=== PATIENT | female | born 1985 | race African-American/Black ===

== ENCOUNTER 2019-02-08 07:45 | Day surgery (SDC) | payer BC, OTHER ==
[2019-02-07 14:10] VITALS: BMI 29.4
[2019-02-08] VITALS (11 sets, daily range): BP systolic 94–121; BP diastolic 56–75; PULSE 66–97; RESP 13–24; Ht 177.8 cm; Wt 92.8 kg
[~2019-02-08] VITALS: Ht 177.8 cm; Wt 92.8 kg
[~2019-02-08 07:45] MED LIST: CEFAZOLIN 2 GM/50 ML (PMX) 50 ML IVPB SCH
[2019-02-08] MEDS ORDERED: LORA10TA3 PO (08:44)
[2019-02-08] MEDS ORDERED: FLUT9.9S NASAL (08:44)
[2019-02-08] MEDS ORDERED: SOD CHLORIDE 0.9% 1,000 ML IV SCH (09:00)
[2019-02-08] MEDS ORDERED: FENTAnyl 50 MCG/ML VIAL ONE ×2 (10:42→12:31)
[2019-02-08] MEDS ORDERED: PROPOFOL 20 ML ONE (10:42)
[2019-02-08] MEDS ORDERED: NEOSTIGMINE 3 MG/3 ML SYRINGE ONE (10:42)
[2019-02-08] MEDS ORDERED: CEFAZOLIN 1 GM INJ ONE (10:42)
[2019-02-08] MEDS ORDERED: GLYCOPYRROLATE 0.4 MG INJ ONE (10:42)
[2019-02-08] MEDS ORDERED: ROCURONIUM 50 MG INJ ONE (10:42)
[2019-02-08] MEDS ORDERED: ONDANSETRON 4 MG INJ ONE (10:42)
[2019-02-08] MEDS ORDERED: MIDAZOLAM 1 MG/ML 2 ML INJ ONE (10:42)
[2019-02-08] MEDS ORDERED: DEXAMETHASONE 4 MG/ML 5 ML INJ ONE (10:42)
[2019-02-08] MEDS ORDERED: LABETALOL HCL 20MG INJ ONE (11:02)
--- NOTE | 2019-02-08 11:20 | PREAC ---
Date/Time of Note Date/Time of Note DATE: 02/08/19 TIME: 11:18 Anesthesia Eval and Record Evaluation Time Pre-Procedure Interview DATE: 02/08/19 TIME: 11:18 Age 33 Sex female NPO: 8 hrs Preoperative diagnosis cholelithiasis Planned procedure LAPAROSCOPIC CHOLECYSTECTOMY POSS OPEN Past Medical History Past Medical History: Includes Pulm: Smoking Hx Surgery & Anesthesia Issues No known issue Meds Anticoagulation: No Beta Panchito within 24 hr: No Reason Beta Panchito not given: Pt. not on B-Panchito Reported Medications Fluticasone Propionate (Flonase Allergy Relief) 9.9 Ml [place].susp, 1 SPRAY NASAL DAILY, #1 BOTTLE TO EACH NOSTRIL 02/08/19 Loratadine* (Loratadine*) 10 Mg Tablet, 10 MG PO DAILY, #30 TAB 02/08/19 Current Medications Cefazolin Sodium/ Dextrose 50 ml @ 100 mls/hr ONCE IVPB ; Start 02/08/19 at 06:00; Stop 02/08/19 at 16:00 Sodium Chloride 1,000 ml @ 75 mls/hr [id number] IV Last administered on 02/08/19at 08:59; Admin Dose 75 MLS/HR; Start 02/08/19 at 09:00 Meds reviewed: Yes Allergies Coded Allergies: doxycycline (Verified Allergy, Severe, rash, 02/07/19) Allergies Reviewed: Yes Labs/Studies Labs Reviewed: Reviewed by anesthesiologist test: N/A (hysterectomy) Pre-procedure Exam Last vitals Vital Signs Date Temp Pulse Resp B/P (MAP) Pulse Ox O2 O2 Flow FiO2 Time Delivery Rate 02/08/19 97.4 97 16 121/75 97 Room Air 08:51 (90) Airway: Adequate mouth opening Mallampati: Mallampati II Teeth: Normal Lung: Normal Heart: Normal ASA Physical Status ASA physical status: 2 Emergency: None Planned Anesthetic General/MAC: ETT Pre-operative Attestations Prior to commencing anesthesia and surgery, the patient was re-evaluated, there was verification of: *The patient's identity *The results of appropriate recent lab work and preoperative vital signs *The above evaluation not changing prior to induction *Anesthetic plan, risk benefits, alternative and complications discussed with patient/family; questions answered; patient/family understands, accepts and wishes to proceed. ELIZABETH TALAVERA Feb 08, 2019 11:20
[2019-02-08] MEDS ORDERED: BUPIVACAINE 0.25% (MPF) 30 ML INJ ONE (11:38)
[2019-02-08] MEDS ORDERED: ALBUTEROL 0.083% (NEB) 2.5 MG/3 ML AMP HHN PRN (12:00)
[2019-02-08] MEDS ORDERED: LABETALOL HCL 20MG INJ IV PRN (12:00)
[2019-02-08] MEDS ORDERED: OXYCODONE/ACETAMINOPHEN (5/325) TAB PO PRN ×2 (12:00)
[2019-02-08] MEDS ORDERED: FENTAnyl 50 MCG/ML VIAL IV PRN ×3 (12:00)
[2019-02-08] MEDS ORDERED: HYDROmorphONE 1 MG/5 ML IV SYRINGE IV PRN ×3 (12:00)
[2019-02-08] MEDS ORDERED: ONDANSETRON 4 MG INJ IV PRN (12:00)
[2019-02-08] MEDS ORDERED: IPRATROPIUM (NEB) 0.5 MG/2.5 ML AMP HHN PRN (12:00)
[2019-02-08] MEDS ORDERED: EPHEDrine 25 MG/5 ML SYG IV PRN (12:00)
[2019-02-08] MEDS ORDERED: MIDAZOLAM 1 MG/ML 2 ML INJ IV PRN (12:00)
[2019-02-08] MEDS ORDERED: hydrALAzine 20 MG INJ IV PRN (12:00)
[2019-02-08] MEDS ORDERED: DIPHENHYDRAMINE 50 MG INJ IV PRN (12:00)
[2019-02-08] MEDS ORDERED: TRIMETHOBENZAMIDE 100 MG/ML VIAL IM PRN (12:00)
[2019-02-08] MEDS ORDERED: MEPERIDINE 25 MG INJ IV PRN (12:00)
[2019-02-08] MEDS ORDERED: ROPIVACAINE 0.5 % 30 ML VIAL ONE (12:03)
--- NOTE | 2019-02-08 12:44 | OPR ---
Date/Time of Note Date/Time of Note DATE: 02/08/19 TIME: 12:42 Operative Report Procedure Date: Feb 08, 2019 Preoperative Diagnosis symptomatic gallstones Postoperative Diagnosis same Operation/Procedure Performed laparoscopic cholecystectomy Surgeon see signature line [employer] Alvino Tavares Anesthesia Type: general Estimated Blood Loss: 0 - 10 ml's Transfusion none Specimen gallbladder Grafts/Implants none Complications none Pt Condition Post Procedure: stable Indications This is a 33-year-old female with some tender gallstones. She required surgical excision of her gallbladder. Risks alternatives benefits and personal were discussed the patient. Patient expressed understanding consents to the operation. Procedure Description Patient is taken to the OR and prepped and draped in usual sterile fashion. Surgical timeout was performed. IV antibiotics given. Infraumbilical transverse incision was made at the 15 blade. Dissection with cardioscan down to the fascia. The fascia was grasped with Karmen's and divided with curved De Jesus scissors. 0 Vicryl use this was placed into the fascia. Baltazar trocar was introduced. Pneumoperitoneum was established. Midepigastric 12 mm optical trochars placed under direct visualization. Right upper quadrant upper flank 5 mm optical trochars were placed under direct visualization. Upon initial inspection there is some adhesions to gallbladder which were taken down bluntly. The gallbladder is grasped with the fundus and retracted and lateral cephalad direction. [place] graspers were used to dissect out the cystic duct and cystic artery. The critical view was established. The cystic duct is divided with the clips proximal clip distal. The division was performed laparoscopic scissors. Cystic artery was divided to close proximal to distal and the divisions performed laparoscopic scissors. The gallbladder was taken of the gallbladder bed. Good hemostasis status. The gallbladder is retrieved Endo Catch bag. All ports removed under direct visualization. 0 Vicryl sutures tied down. Skin is closed and skin surinder. A tap block was provided by the anesthesiologist at the beginning the case. Dry dressings were applied. Julito HUTCHINS Feb 08, 2019 12:44
[2019-02-08] MEDS ORDERED: HYDROCODONE/APAP (5/325) TAB PO ONE (13:00)
--- NOTE | 2019-02-08 13:03 | PAC ---
Date/Time of Note Date/Time of Note DATE: 02/08/19 TIME: 13:02 Post-Anesthesia Notes Post-Anesthesia Note Last documented vital signs Vital Signs Date Temp Pulse Resp B/P (MAP) Pulse Ox O2 O2 Flow FiO2 Time Delivery Rate 02/08/19 98.7 12:46 02/08/19 97 16 121/75 97 Room Air 08:51 (90) Activity: WNL Respiratory function: WNL Cardiovascular function: WNL Mental status: Baseline Pain reasonably controlled: Yes Hydration appropriate: Yes Nausea/Vomiting absent: Yes Jayro Gavin M.D. Feb 08, 2019 13:03
== END 2019-02-08 14:28 | disposition home or self-care (01) ==
LOC: SUR 07:45 → SDS 07:45 → SUR 14:28
PROVIDERS: ATTEND Surgery
DX: K80.10 Calculus of gallbladder with chronic cholecystitis without obstruction (principal); Z87.891 Personal history of nicotine dependence
CPT/HCPCS: 47562; 88304; J0690; J1100; J2250; J2405; J2710; J2795; J3010; Z7512; Z7610